=== PATIENT | female | born 1995 | race Caucasian/White ===

== ENCOUNTER 2024-07-03 14:15 | Outpatient (AMB) | payer OTHER, SELFPAY ==
--- NOTE | 2024-07-03 14:24 | AM.OFFWIN_ITS ---
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 She denies any recent swimming, prolonged outdoor activities, recent pedicure, or new footwear. 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 She has noted redness of the toes bilaterally, worse on the right, and does report occasional swelling of lower extremities, especially after eating salty foods. She denies any recent illness, fever, shortness of breath, heart palpitations, or lightheadedness. [facility] Social History Patient Tobacco Use Status: Current someday Tobacco user Female Reproductive History Menstrual Date of last menstrual period: 07/03/24 Review of Systems Const Reports as per HPI, Denies body aches, Denies chills, Denies fatigue, Denies fever(s) and Denies headache(s) Eyes Reports no additional complaints, Denies blurry vision and Denies change in vision ENT Denies headache(s) Card Denies diaphoresis, Denies syncope, Denies irregular heart rhythm, Reports leg edema and Denies dyspnea Resp Denies dyspnea GI Denies abdominal pain, Denies diarrhea, Denies nausea and Denies vomiting Musc Reports as per HPI, Reports numbness and Reports tingling Skin/Breast Denies nail changes and Reports skin swelling Neuro Denies syncope, Denies headache(s), Reports numbness and Reports tingling Endo Denies fatigue Physical Exam Vital Signs: Last Vital Signs Pulse 84 07/03/24 14:26 BP 130/90 H 07/03/24 14:26 Pulse Ox 98 07/03/24 14:26 Oxygen Delivery Method Room Air 07/03/24 14:26 BMI result Body Mass Index 33.4 Const General: cooperative, healthy appearing and no acute distress HEENT Head: Yes normocephalic and Yes atraumatic Mouth: Normal oral and palatal mucosa present Eyes General: appearance normal, both eyes and all related structures Resp Effort & Inspection: normal respiratory effort Cardio Peripheral pulses: dorsalis pedis present Extrem General: Yes full ROM and Yes normal exam except as noted Right lower extremity: edema and foot (sluggish cap refill w/ decreased sensation, nonttp, mild edema of toes); abnormal capillary refill Left lower extremity: edema and foot (mild etm to medial great toe) Details: normal capillary refill and toes with normal ROM; no tenderness Assessment & Plan Assessment & Plan (1) Bilateral lower extremity edema: Code(s): R60.0 - Localized edema Plan: As patient reports occasional edema, recent weight gain, and numbness of lower extremities, will assess for severe anemia with CBC, thyroid disorder with TSH, patient herself is concerned about diabetes, and is within reason to obtain an A1c given her symptoms and reported weight gain. Encouraged patient to elevate lower extremities after shifts to help with dependent edema. (2) Cellulitis of great toe of right foot: Code(s): L03.031 - Cellulitis of right toe Plan: Will treat great toe of right foot as a cellulitis, with differential diagnosis including as specified above. Doxycycline 1 week course; patient given risks benefits contraindications for this medication. Orders: Orders Complete Blood Count Auto Diff Today L03.031 - Cellulitis of right toe, R60.0 - Localized edema TSH reflex Free T4 Today L03.031 - Cellulitis of right toe, R60.0 - Localized edema Basic Metabolic Panel Today L03.031 - Cellulitis of right toe, R60.0 - Localized edema Hemoglobin A1c Today L03.031 - Cellulitis of right toe, R60.0 - Localized edema Medications: New doxycycline hyclate 100 mg PO BID 7 days 14 caps 0RF Coding Level of Care Code New Pt Level 3 (13612) Diagnoses Bilateral lower extremity edema R60.0 Cellulitis of great toe of right foot L03.031
[2024-07-03 14:26] VITALS: BP 130/90; PULSE 84; O2SAT 98; BMI 33.4
== END 2024-07-03 15:12 | disposition home or self-care (01) ==
PROVIDERS: Visit Provider Emergency Medicine
DX: R60.0 Localized edema (principal); L03.031 Cellulitis of right toe
CPT/HCPCS: 99203

== ENCOUNTER 2024-07-03 14:49 | Outpatient (REF) | payer OTHER, SELFPAY ==
[2024-07-03 16:18] LABS: MANUAL DIFF FLAG NO
[2024-07-03 16:26] LABS: Basophils Percent Auto 0.6 % (0-2); Eosinophils Absolute Auto 0.2 X10*3/uL (0.0-0.4); Eosinophils Percent Auto 3.8 % (0-4); Hematocrit 39.1 % (37.0-47.0); Imm Gran Abs Auto 0.03 X10*3/uL (0.00-0.03); Imm Gran Pct Auto 0.6 % (0.0-0.4); Lymphocytes Absolute Auto 1.4 X10*3/uL (1.2-4.9); Lymphocytes Percent Auto 28.7 % (20-40); Mean Corpuscular HGB Conc 33.2 g/dl (31.0-35.0); Mean Corpuscular Hemoglobin 30.9 pg (27.0-33.0); Mean Corpuscular Volume 92.9 fL (80.0-98.0); Mean Platelet Volume 10.5 fL (9.4-12.3); Monocytes Absolute Auto 0.4 X10*3/uL (0.1-1.2); Monocytes Percent Auto 7.6 % (2-11); Neutrophils Absolute Auto 2.9 x10*3/uL (2.0-8.3); Neutrophils Percent Auto 58.7 % (45-73); Platelet Count 268 X10*3/uL (160-400); Red Blood Count 4.21 X10*6/uL (4.20-5.50); Red Cell Distribution Width 13.6 % (11.0-16.0)
[2024-07-03 16:31] LABS: Estimated Average Glucose 100 mg/dL; Hemoglobin A1c % 5.1 % (<6.0)
[2024-07-03 20:51] LABS: Anion Gap 14 (12-20); Blood Urea Nitrogen 9 mg/dL (9-16); Calcium 9.6 mg/dL (8.4-10.2); Carbon Dioxide 23 mmol/L (22-29); Chloride 107 mmol/L (96-108); Estimated Glomerular Filt Rate > 60; Glucose Random 93 mg/dL (60-115); Potassium 4.5 mmol/L (3.3-5.1); Sodium 139 mmol/L (135-145)
[2024-07-03 21:01] LABS: TSH reflex Free T4 0.74 uIU/mL (0.32-4.0)
== END 2024-07-03 14:50 | disposition home or self-care (01) ==
LOC: HO.HMGCLDS 14:49
PROVIDERS: Visit Provider Emergency Medicine
DX: R60.0 Localized edema (principal); L03.031 Cellulitis of right toe
CPT/HCPCS: 36415; 80048; 83036; 84443; 85025

== ENCOUNTER 2024-08-11 12:00 | Outpatient (AMB) | payer OTHER, SELFPAY ==
[2024-08-11 12:06] VITALS: BP 132/82; PULSE 82; O2SAT 98
--- NOTE | 2024-08-11 12:06 | AM.OFFWIN_ITS ---
Intake Vital Signs 08/11/24 12:06 Height 5 ft 6 in BP 132/82 Blood Pressure Location Lt brachial Position Sitting Pulse 82 Pulse Source Pulse Oximeter Pulse Oximetry (%) 98 Oxygen Delivery Method Room Air Intake Visit Reasons: EP/ Stomach pain Intake Note: pt is here for stomach pain Patient Tobacco Use Status: Current someday Tobacco user Allergies Sulfa (Sulfonamide Antibiotics) Adverse Reaction (Mild, Verified 08/11/24 12:07) Hives Do you need a note to return to daycare/school/sports/work: No PFSH Social History Patient Tobacco Use Status: Current someday Tobacco user Review of Systems Const All systems reviewed & are unremarkable except as noted in HPI and below Physical Exam Vital Signs: Last Vital Signs Pulse 82 08/11/24 12:06 BP 132/82 08/11/24 12:06 Pulse Ox 98 08/11/24 12:06 Oxygen Delivery Method Room Air 08/11/24 12:06 Results AMB Urinalysis, Automated UA Leukoctes 0 Nidhi/uL Last Edit by Michael Taylor CMA on 08/11/24 12:53 UA Nitrite Negative Last Edit by Michael Taylor CMA on 08/11/24 12:53 UA Urobilinogen 0.2 mg/dL Last Edit by Michael Taylor CMA on 08/11/24 12 :53 UA Protein 0 mg/dL Last Edit by Michael Taylor CMA on 08/11/24 12:53 UA pH 6.0 Last Edit by Michael Taylor CMA on 08/11/24 12:53 UA Blood 0 George/uL Last Edit by Michael Taylor CMA on 08/11/24 12:53 UA Specific [place] 1.015 Last Edit by Michael Taylor CMA on 08/11/24 12:53 UA Ketone Negative Last Edit by Michael Taylor CMA on 08/11/24 12:53 UA Bilirubin 0 mg/dL Last Edit by Michael Taylor CMA on 08/11/24 12:53 UA Glucose 0 mg/dL Last Edit by Michael Taylor CMA on 08/11/24 12:53 Results Reviewed Results Reviewed: Laboratory Last Values Urine pH (Auto) 6.0 08/11/24 12:52 Specific [place] (Auto) 1.015 08/11/24 12:52 Urine Protein (Auto) 0 mg/dL 08/11/24 12:52 Glucose (UA)(Auto) 0 mg/dL 08/11/24 12:52 Urine Ketones (Auto) Negative 08/11/24 12:52 Urine Blood (Auto) 0 George/uL 08/11/24 12:52 Urine Nitrite (Auto) Negative 08/11/24 12:52 Urine Bilirubin (Auto) 0 mg/dL 08/11/24 12:52 Urine Urobilinogen (Auto) 0.2 mg/dL 08/11/24 12:52 Leukocyte Esterase (Auto) 0 Nidhi/uL 08/11/24 12:52 Assessment & Plan Assessment & Plan Orders: Orders AMB Urinalysis Automated Today Z13.9 - Encounter for screening, unspecified Medications: New nitrofurantoin monohyd/m-cryst 100 mg (Macrobid) must administer with a meal/food 100 mg PO Q12H 10 caps 0RF 5 days N39.0 - Urinary tract infection, site not specified omeprazole 40 mg PO DAILY 30 caps 0RF sucralfate 1 g PO Q6H 90 tabs 0RF Coding Level of Care Code Est Pt Level 4 (95773)
== END 2024-08-11 12:54 | disposition home or self-care (01) ==
PROVIDERS: Visit Provider Physician Assistant Medical
DX: Z13.9 Encounter for screening, unspecified (principal)

== ENCOUNTER → 2024-08-11 12:00 | Outpatient (BNVA) | payer OTHER, SELFPAY | DX: N39.0 Urinary tract infection, site not specified (principal) | CPT/HCPCS: 81003 ==